=== PATIENT | male | born 1955 | race Caucasian/White ===

== ENCOUNTER → 2022-04-05 10:15 | Outpatient (BNVA) | payer BC, SELFPAY | PROVIDERS: PCP Physician Assistant Medical; Visit Provider Hospitalist | DX: Z23 Encounter for immunization (principal); J44.9 Chronic obstructive pulmonary disease, unspecified; R91.8 Other nonspecific abnormal finding of lung field; F17.200 Nicotine dependence, unspecified, uncomplicated; Z71.6 Tobacco abuse counseling | CPT/HCPCS: 90471; 90686 ==

== ENCOUNTER 2023-02-14 10:41 | Outpatient (AMB) | payer BC, SELFPAY ==
--- NOTE | 2023-02-14 10:52 | A.OFFVIS_ITS ---
Intake Vital Signs 02/14/23 10:53 Height 6 ft Weight 165 lb BMI 22.4 BP 124/60 Blood Pressure Location Lt brachial Position Sitting Pulse 65 Pulse Source Pulse Oximeter Pulse Oximetry (%) 94 Oxygen Delivery Method Room Air Intake Visit Reasons: Pulmonary nodules Allergies No Known Allergies Allergy (Verified 02/14/23 10:55) HPI HPI Comments History of Present Illness Details The patient is a 67-year-old gentleman current smoker presenting worsening productive cough and shortness of breath. The patient has been struggling with smoking. He has been trying to quit. Although been difficult. He was prescribed the patch but he has not use them. In addition to the shortness of breath, the patient has had a productive cough with white and yellowish phlegm. Moderate severity. Part of the workup the patient was re ferred to the lung cancer screening program at [facility] where he underwent a CT scan of the chest. We did personally review the CAT scan together. It appears that he does have some emphysematous changes in the upper lung zones. In addition to that significant bronchitis primarily in the mid and lower lung zones. He has multiple pulmonary nodules but the right middle lobe nodular density is little spiculated. Therefore was recommended he have a follow-up CT scan in 6 months. This will be February 2022. 01/03/2022 the patient has a telehealth visit. Apparently since we last spoke he started developing upper respiratory symptoms. He tested positive for COVID about 2 weeks ago. He did not take any antiviral therapy. The patient is feeling better although he did have a productive cough with green sputum moderate amount and also was having significant fatigue. Seems that the mucus burden is going down. He did try the Trelegy but was not as effective as Symbicort that he is using the past. He rather use Symbicort at this time. He also needs a rescue inhaler sent to the pharmacy P I will make sure to send more than medications. In the meantime I also sent a Z-Andrew to treating for acute bronchitis after the viral syndrome. Again, the patient will have a CT scan of the chest sometime in February and also will have to reschedule his PFTs. Will plan to follow-up sometime March to repeat you those results and to see how he is responding to the respiratory therapy. If the patient has any issues prior to that he has call the office for an earlier evaluation. 04/05/2022 patient is here for pulmonary follow-up visit. Overall the patient has been doing relatively well from a respiratory status. He responded better to the Symbicort inhaler. He still has wheezing at times. He does use his rescue inhaler a few times a week. He did undergo a CT scan of the chest as part of the lung cancer screening program and was read as unchanged. The patient is reassured. I do not have the report however. He did not have his pulmonary function studies as of yet. In addition to this the patient is still smoking. He did not waste picker the Nicotrol nasal spray. He was trying to wean down the cut down on the smoking to see if we could cut in that fashion. However he was not successful. He would like to try going Chantix and also using the Nicotrol nasal spray. I did not recommend he use Chantix along with nicotine products because would worsens the adverse effects of the medication. Therefore while sent Wellbutrin to the pharmacy that he can use in conjunction with the Nicotrol sprays for breakthrough symptoms. Otherwise the patient is doing well. 02/13/2023 the patient is here for a pulm onary follow-up visit. The patient recently started developing upper respiratory symptoms with cough. Also some chest tightness. He went to see his primary care doctor. He was diagnosed with sinusitis and bronchitis was given a course of doxycycline. He has been on it already for about 4 days. He is already feeling better. Clinically. On examination he does have some crackles on the right base area. Explained to him that he is likely having a component of bronchopneumonia but since he is already feeling better on antibiotics which is sent to continue to monitor his symptoms. If the patient has no improvement after the completion of the therapy or any worsening symptoms he is to get a repeat chest x-ray and will be requesting a sputum culture. In meantime if he feels better he should wait for his lung cancer screening CT scan until he is recovered from this illness. I did emphasize that will take around 4-6 weeks to clear the pneumonia. His last CT scan of the chest I personally reviewed was done at [facility] back in February 2022. The largest nodule measuring 5 mm in size had resolved. Now he has stable pulmonary nodules measuring about 2 mm in size. Therefore the patient was to continue the doxycycline if the patient is no better he will call the office. Otherwise to have his CT scan in a follow-up in 6 months. [facility] Medical History (Updated 02/14/23 @ 22:41 by Everardo David MD) Tobacco dependence Pulmonary nodules COPD (chronic obstructive pulmonary disease) Social History (Updated 11/05/21 @ 09:19 by COLLINS Griffith) Patient Tobacco Use Status: Current everyday Tobacco user Tobacco use type: Cigarette Years Smoked: 30 Yeras Review of Systems Const Denies chills and Denies fatigue Eyes Denies change in vision ENT Reports change in voice, Reports nasal congestion, Reports nasal discharge and Reports sore throat Card Denies chest pain and Reports dyspnea on exertion Resp Reports chest congestion, Reports cough, Reports dyspnea on exertion and Reports wheezing GI Reports no additional complaints Musc Reports no additional complaints Skin/Breast Denies rash Neuro Reports no additional complaints Endo Reports no additional complaints and Denies fatigue Marko/Lymph Denies easy bleeding, Denies easy bruising and Denies lymphadenopathy Aller/Immun Reports wheezing Physical Exam Vital Signs: Last Vital Signs Pulse 65 02/14/23 10:53 BP 124/60 02/14/23 10:53 Pulse Ox 94 02/14/23 10:53 Oxygen Delivery Method Room Air 02/14/23 10:53 BMI result Body Mass Index 22.4 Const General: alert HEENT Head: Yes normocephalic Neck Neck: Yes normal visual inspection and Yes full ROM Chest Chest palpation & inspection: normal inspection of the chest Resp Auscultation: crackles on the right, no wheezes and diminished lung sounds Cardio Rate: regular rate Rhythm: regular rhythm Heart sounds: S1 normal heart sound present and S2 normal heart sound present GI Inspection: Yes normal to inspection Skin General skin exam: no rashes or lesions noted Extrem General: Yes no clubbing, cyanosis or edema Assessment & Plan Assessment & Plan (1) COPD (chronic obstructive pulmonary disease): Code(s): J44.9 - Chronic obstructive pulmonary disease, unspecified Qualifiers: COPD type: chronic bronchitis Chronic bronchitis type: mixed simple and mucopurulent Qualified Code(s): J41.8 - Mixed simple and mucopurulent chronic bronchitis (2) Pulmonary nodules: Comment: 08/2021 [facility] 5mm spiculated nodule in the RML, other multiple sub-centimeter nodules noted Code(s): R91.8 - Other nonspecific abnormal finding of lung field (3) Tobacco dependence: Code(s): F17.200 - Nicotine dependence, unspecified, uncomplicated (4) Pneumonia: Code(s): J18.9 - Pneumonia, unspecified organism Qualifiers: Pneumonia type: due to unspecified organism Laterality: right Lung location: unspecified part of lung Qualified Code(s): J18.9 - Pneumonia, unspecified organism Plan continue Doxycycline, if no better will have CXR and sputum culture and call for a 2nd Abx continue Symbicort MAGAN as needed PFTs Tobacco cessation: wellbutrin and nicotrol spray for breakthrough LDCT 03/20. Established through the [employer] program. MAy need to postpond to 03/2023 to make sure he clears the acute process F/U 6 months Orders: Orders Sputum Cult + Gram stain Today J18.9 - Pneumonia, unspecified organism XR chest 2V Today J18.9 - Pneumonia, unspecified organism Quality Reporting (2019) Adult ([facility] 138/07/20/68) Smoking risk assessment performed?: Yes Patient Tobacco Use Status: Current everyday Tobacco user Coding Level of Care Code Est Pt Level 4 (93973) Diagnoses Mixed simple and mucopurulent chronic bronchitis J41.8 COPD type: chronic bronchitis Chronic bronchitis type: mixed simple and mucopurulent Pulmonary nodules R91.8 Tobacco dependence F17.200 Pneumonia of right lung due to infectious organism, unspecified part of lung J18.9 Pneumonia type: due to unspecified organism Laterality: right Lung location: unspecified part of lung Time Spent (min) 17
[2023-02-14 10:53] VITALS: BP 124/60; PULSE 65; O2SAT 94; BMI 22.4
== END 2023-02-14 11:24 | disposition home or self-care (01) ==
PROVIDERS: PCP Physician Assistant Medical; Visit Provider Hospitalist
DX: J41.8 Mixed simple and mucopurulent chronic bronchitis (principal); R91.8 Other nonspecific abnormal finding of lung field; F17.200 Nicotine dependence, unspecified, uncomplicated; J18.9 Pneumonia, unspecified organism
CPT/HCPCS: 99214

== ENCOUNTER → 2023-02-14 10:41 | Outpatient (BNVA) | payer BC, SELFPAY | PROVIDERS: PCP Physician Assistant Medical; Visit Provider Hospitalist ==

== ENCOUNTER 2023-08-15 10:30 | Outpatient (AMB) | payer BC, SELFPAY ==
[2023-08-15 11:15] VITALS: PULSE 80; O2SAT 91; BMI 22.4
--- NOTE | 2023-08-15 11:15 | A.OFFVIS_ITS ---
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 The patient has been s truggling with smoking. He has been trying to quit. Although been difficult. He was prescribed the patch but he has not use them. In addition to the shortness of breath, the patient has had a productive cough with white and yellowish phlegm. Moderate severity. Part of the workup the patient was referred to the lung cancer screening program at [facility] where he underwent a CT scan of the chest. We did personally review the CAT scan together. It appears that he does have some emphysematous changes in the upper lung zones. In addition to that significant bronchitis primarily in the mid and lower lung zones. He has multiple pulmonary nodules but the right middle lobe nodular density is little spiculated. Therefore was recommended he have a follow-up CT scan in 6 months. This will be February 2022. 01/03/2022 the patient has a telehealth visit. Apparently since we last spoke he started developing upper respiratory symptoms. He tested positive for COVID about 2 weeks ago. He did not take any antiviral therapy. The patient is feeling better although he did have a productive cough with green sputum moderate amount and also was having significant fatigue. Seems that the mucus burden is going down. He did try the Trelegy but was not as effective as Symbicort that he is using the past. He rather use Symbicort at this time. He also needs a rescue inhaler sent to the pharmacy P I will make sure to send more than medications. In the meantime I also sent a Z-Andrew to treating for acute bronchitis after the viral syndrome. Again, the patient will have a CT scan of the chest sometime in February and also will have to reschedule his PFTs. Will plan to follow-up sometime March to repeat you those results and to see how he is responding to the respiratory therapy. If the patient has any issues prior to that he has call the office for an earlier evaluation. 04/05/2022 patient is here for pulmonary follow-up visit. Overall the patient has been doing relatively well from a respiratory status. He responded better to the Symbicort inhaler. He still has wheezing at times. He does use his rescue inhaler a few times a week. He did undergo a CT scan of the chest as part of the lung cancer screening program and was read as unchanged. The patient is reassured. I do not have the report however. He did not have his pulmonary function studies as of yet. In addition to this the patient is still smoking. He did not tile picker the Nicotrol nasal spray. He was trying to wean down the cut down on the smoking to see if we could cut in that fashion. However he was not successful. He would like to try going Chantix and also using the Nicotrol nasal spray. I did not recommend he use Chantix along with nicotine products because would worsens the adverse effects of the medication. Therefore while sent Wellbutrin to the pharmacy that he can use in conjunction with the Nicotrol sprays for breakthrough symptoms. Otherwise the patient is doing well. 02/13/2023 the patient is here for a pulm onary follow-up visit. The patient recently started developing upper respiratory symptoms with cough. Also some chest tightness. He went to see his primary care doctor. He was diagnosed with sinusitis and bronchitis was given a course of doxycycline. He has been on it already for about 4 days. He is already feeling better. Clinically. On examination he does have some crackles on the right base area. Explained to him that he is likely having a component of bronchopneumonia but since he is already feeling better on antibiotics which is sent to continue to monitor his symptoms. If the patient has no improvement after the completion of the therapy or any worsening symptoms he is to get a repeat chest x-ray and will be requesting a sputum culture. In meantime if he feels better he should wait for his lung cancer screening CT scan until he is recovered from this illness. I did emphasize that will take around 4-6 weeks to clear the pneumonia. His last CT scan of the chest I personally reviewed was done at [facility] back in February 2022. The largest nodule measuring 5 mm in size had resolved. Now he has stable pulmonary nodules measuring about 2 mm in size. Therefore the patient was to continue the doxycycline if the patient is no better he will call the office. Otherwise to have his CT scan in a follow-up in 6 months. 08/15/2023 the patient is here for a pulm onary follow-up visit. The patient has been doing okay. Unfortunately he is still smoking cigarettes. He is rounded cut down. A few months ago he developed a worsening cough chest congestion. He did follow-up with his primary care doctor he was prescribed prednisone and then a few courses of antibiotics. Now is back to his baseline. The patient was participating in the lung cancer screening program at [facility] in then he was supposed to follow-up here. He has not had a CT scan as of yet. I believe 1 time he had to reschedule. Will go ahead and we refer him to the lung cancer screening program in order for him to get his CT scan soon. He did have a history of pulmonary nodules that do need follow-up specially with his high risk of malignancy. His respiratory exam is okay although he still having some wheezing. He does not uses Symbicort regularly. I did recommend that he use a little more often. In addition to that if that is not better we can always consider adding Spiriva to his respiratory regimen. Will follow-up in 6-8 months. If the patient has any worsening symptoms he will call the office for an earlier assessment. [facility] Medical History (Updated 02/14/23 @ 22:41 by Everardo David MD) Tobacco dependence Pulmonary nodules COPD (chronic obstructive pulmonary disease) Social History (Updated 11/05/21 @ 09:19 by COLLINS Griffith) Patient Tobacco Use Status: Current everyday Tobacco user Tobacco use type: Cigarette Years Smoked: 30 Yeras Review of Systems Const Denies chills and Denies fatigue Eyes Denies change in vision ENT Reports change in voice, Reports nasal congestion, Reports nasal discharge and Reports sore throat Card Denies chest pain and Reports dyspnea on exertion Resp Reports chest congestion, Reports cough, Reports dyspnea on exertion and Reports wheezing GI Reports no additional complaints Musc Reports no additional complaints Skin/Breast Denies rash Neuro Reports no additional complaints Endo Reports no additional complaints and Denies fatigue Marko/Lymph Denies easy bleeding, Denies easy bruising and Denies lymphadenopathy Aller/Immun Reports wheezing Physical Exam Vital Signs: Last Vital Signs Pulse 80 08/15/23 11:15 Pulse Ox 91 L 08/15/23 11:15 Oxygen Delivery Method Room Air 08/15/23 11:15 BMI result Body Mass Index 22.4 Const General: alert HEENT Head: Yes normocephalic Neck Neck: Yes normal visual inspection and Yes full ROM Chest Chest palpation & inspection: normal inspection of the chest Resp Auscultation: rhonchi, wheezes and diminished lung sounds Cardio Rate: regular rate Rhythm: regular rhythm Heart sounds: S1 normal heart sound present and S2 normal heart sound present GI Inspection: Yes normal to inspection Skin General skin exam: no rashes or lesions noted Extrem General: Yes no clubbing, cyanosis or edema Assessment & Plan Assessment & Plan (1) COPD (chronic obstructive pulmonary disease): Code(s): J44.9 - Chronic obstructive pulmonary disease, unspecified Qualifiers: COPD type: chronic bronchitis Chronic bronchitis type: mixed simple and mucopurulent Qualified Code(s): J41.8 - Mixed simple and mucopurulent chronic bronchitis (2) Pulmonary nodules: Comment: 08/2021 [facility] 5mm spiculated nodule in the RML, other multiple sub-centimeter nodules noted Code(s): R91.8 - Other nonspecific abnormal finding of lung field (3) Tobacco dependence: Code(s): F17.200 - Nicotine dependence, unspecified, uncomplicated Plan continue Symbicort start Combivent MAGAN as needed Tobacco cessation: wellbutrin and nicotrol spray for breakthrough LDCT 03/20. Established through the [facility] program. [place] [facility] F/U 6-8 months Orders: Referrals Thoracic Surgery Referral F17.200 - Nicotine dependence, unspecified, uncomplicated Medications: New ipratropium-albuterol 20-100 mcg/actuation (Combivent Respimat) space evenly during waking hours 1 puff inhalation QID 4 grams 6RF Quality Reporting (2019) Adult ([facility] 138/2/69) Smoking risk assessment performed?: Yes Patient Tobacco Use Status: Current everyday Tobacco user Coding Level of Care Code Est Pt Level 4 (15685) Diagnoses Mixed simple and mucopurulent chronic bronchitis J41.8 COPD type: chronic bronchitis Chronic bronchitis type: mixed simple and mucopurulent Pulmonary nodules R91.8 Tobacco dependence F17.200 Time Spent (min) 17
== END 2023-08-15 11:32 | disposition home or self-care (01) ==
PROVIDERS: PCP Physician Assistant Medical; Visit Provider Hospitalist
DX: J41.8 Mixed simple and mucopurulent chronic bronchitis (principal); R91.8 Other nonspecific abnormal finding of lung field; F17.200 Nicotine dependence, unspecified, uncomplicated
CPT/HCPCS: 99214

== ENCOUNTER → 2023-08-15 10:30 | Outpatient (BNVA) | payer BC, SELFPAY | PROVIDERS: PCP Physician Assistant Medical; Visit Provider Hospitalist ==

== ENCOUNTER 2023-09-22 09:24 | Outpatient (AMB) | payer BC, SELFPAY ==
--- NOTE | 2023-09-22 07:48 | A.OFFVIS_ITS ---
Intake Visit Reasons: Current Smoker Allergies No Known Allergies Allergy (Verified 08/15/23 11:16) HPI HPI Current Smoker: Details: Initial visit for this 67yo smoker with a 40+PYH. Patient has been smoking since age 17 for 50 years at 1ppd. . Denies marijuana use. Denies second hand smoke exposure. REports exposure to chemicals or substances like asbestos and diesel fumes. . Denies known family history of lung cancer. Denies personal history of cancers. . Denies chest CT in last year. 03.17[place] [facility] [place] lung RADS 2. He canceled 2022 scan as he had a cough at the time and then never was rescheduled. . Denies recent travel outside the [place]. Denies recent respiratory illness or recent hospitalization for respiratory issues. Rports testing positive for COVID in 2020. Admits receiving COVID Vaccine. x 2. . Denies fever, chills, new/worsening cough, hemoptysis, hoarseness or dysphagia. Denies significant chest pain, significant dyspnea or unintentional weight loss. Patient Lung Cancer Screening Questionnaire reviewed with patient by provider. . Shared Decision Making Completed. Patient meets criteria. Discussed in detail with patient, the risk vs benefit of LDCT screening. Patient consents to proceed with scan. Discussed smoking cessation. [facility] Medical History (Updated 09/22/23 @ 09:41 by Julianna Oakley PA-C) Pulmonary nodules COPD (chronic obstructive pulmonary disease) Nicotine dependence, cigarettes, uncomplicated Hypertension GERD (gastroesophageal reflux disease) Gout Surgical History (Updated 09/22/23 @ 09:35 by Julianna Oakley PA-C) History of tonsillectomy Social History (Updated 09/22/23 @ 09:32 by Julianna Oakley PA-C) Alcohol intake: current Alcohol intake frequency: 0-2 drinks per day Patient Tobacco Use Status: Current everyday Tobacco user Tobacco use type: Cigarette Years Smoked: (onset 17yo, 1ppd x 50yrs, 40+PYH) Quality Reporting (2019) Adult ([facility] /07/20/[birth year]) Smoking risk assessment performed?: Yes Patient Tobacco Use Status: Current everyday Tobacco user Assessment & Plan Assessment & Plan (1) Nicotine dependence, cigarettes, uncomplicated: Comment: (current smoker - onset 17yo, 1ppd x 50yrs, 40+PYH) Code(s): F17.210 - Nicotine dependence, cigarettes, uncomplicated Category: Medical Plan: - SDM visit completed today in office. - Patient meets criteria for LDCT for lung cancer screening purposes and is asymptomatic. - Smoking cessation counseling offered. Patients can always call [phone]. - Will arrange for a LDCT scan of the chest for screening purposes at [facility]. - Risks, benefits, and alternatives were discussed in detail and the patient agrees to proceed. - Risks discussed include but are not limited to: radiation exposure, anxiety during testing and while awaiting results, false negatives, false positives and possibility of additional intervention such as further imaging or surgical procedures for benign disease. - Benefits are obviously detection of lung cancer at an early stage which can lead to improved outcomes. - Discussed the importance of screening program compliance with adherence to yearly LDCT scan as scheduled - or sooner interval scans for personalized screening regimen. - Discussed follow up plan. Our office will send a letter discussing results and if needed set up phone call and office visit based on CT findings. - Patient educated on results categorization and the management decisions for suspicious findings potentially found on the screening LDCT scan. Any patient with a Lung RADS score of 3 or 4 will be reviewed by a multidisciplinary team at [facility] to form a plan of action in regards to scan findings. - If further work up is warranted for a suspicious lung finding this will be followed by the Lung Cancer Screening program in conjunction with the Thoracic Surgery Department at [facility]. - A copy of the office note and LDCT will be sent to the patient's PCP - as well as documentation on any associated further plans of care. - Incidental findings on LDCT are the PCP's responsibility. These findings are indicated with an S finding on the LDCT Assessment. A note discussing the findings will be sent to the PCP who is then responsible for further management. - All questions answered.? Coding Level of Care Code Lung Cancer Screening G0296 Diagnoses Nicotine dependence, cigarettes, uncomplicated F17.210
== END 2023-09-22 09:44 | disposition home or self-care (01) ==
PROVIDERS: PCP Physician Assistant Medical; Referring Provider Hospitalist; Visit Provider Physician Assistant Medical
DX: F17.210 Nicotine dependence, cigarettes, uncomplicated (principal)
CPT/HCPCS: G0296

== ENCOUNTER 2023-09-22 09:41 | Outpatient (REF) | payer BC, SELFPAY ==
--- NOTE | ~2023-09-22 | CT_ITS ---
EXAMINATION: CT CHEST SCREENING CLINICAL INFORMATION: Nicotine dependence, cigarettes, uncomplicated. The patient is a current smoker with a 40 pack-year history of smoking. COMPARISON: None available. TECHNIQUE: Multidetector volumetric CT imaging of the chest is performed on a Siemens SOMATOM Definition scanner without contrast using low dose technique. Additional 2D coronal and sagittal reformatted images and axial 3D maximum intensity projection (MIP) images are generated on the CT workstation. This CT examination was performed using dose optimization techniques as appropriate, variously including the following: *Automated exposure control *Adjustment of mA and/or kV according to patient size (this includes techniques or standardized protocols for targeted exams where dose is matched to indication/reason for exam; i.e. extremities or head) *Use of iterative reconstruction technique DLP: 49 mGy-cm FINDINGS: LUNGS: Moderate emphysematous changes are present with a saber-sheath trachea. Moderate diffuse bronchial thickening is noted. There is a 5 mm nodule seen at the left lung apex (5:83). No other pulmonary nodules are seen. MEDIASTINUM: The mediastinum is normal. CORONARY ARTERY CALCIFICATION: Mild to moderate. PLEURA: There is no pleural effusion. No pleural mass or thickening. AXILLA: No lymphadenopathy. UPPER ABDOMEN: Unremarkable OSSEOUS STRUCTURES: Unremarkable. CT/CT lung screening IMPRESSION: Moderate emphysema. No concerning pulmonary nodules. ASSESSMENT: Lung-RADS category 2: Benign RECOMMENDATION: Routine annual low-dose CT screening in 12 months.
== END 2023-09-22 09:42 | disposition home or self-care (01) ==
LOC: HO.CT 09:41
PROVIDERS: PCP Physician Assistant Medical; Visit Provider Physician Assistant Medical
DX: Z12.2 Encounter for screening for malignant neoplasm of respiratory organs (principal); F17.210 Nicotine dependence, cigarettes, uncomplicated
CPT/HCPCS: 71271; G0296

== ENCOUNTER 2024-04-12 14:06 | Outpatient (AMB) | payer BC, SELFPAY ==
[2024-04-12 14:35] VITALS: BP 140/74; PULSE 66; O2SAT 92; BMI 21.5
--- NOTE | 2024-04-12 14:35 | A.OFFVIS_ITS ---
Vital Signs 04/12/24 14:35 Height 6 ft Weight 158 lb 11.725 oz BMI 21.5 BP 140/74 H Blood Pressure Location Lt brachial Position Sitting Pulse 66 Pulse Source Pulse Oximeter Pulse Oximetry (%) 92 Oxygen Delivery Method Room Air Intake Visit Reasons: Pulmonary nodules Lens Maker Required: No Director Child Abuse Therapy: Director Child Abuse Therapy offered & declined Accompanied by: Self / Same As Patient Allergies No Known Allergies Allergy (Verified 04/12/24 14:41) Medication List - Last Reconciled 04/12/24 by Mulu Ortiz LPN albuterol sulfate 90 mcg/actuation 2 inhalations inhalation Q6H PRN 30 days allopurinol 200 mg PO DAILY budesonide-formoterol 160-4.5 mcg/actuation 2 puffs inhalation BID bupropion HCl 150 mg (2 x 75 mg) PO BID celecoxib 200 mg PO DAILY doxycycline hyclate 100 mg PO DAILY ipratropium-albuterol 20-100 mcg/actuation (Combivent Respimat) 1 puff inhalation QID lisinopril 20 mg PO DAILY metoprolol succinate ER 100 mg PO DAILY nicotine (Nicotrol NS) 1 spray intranasal Q10M PRN nicotine 1 patch transdermal DAILY 28 days HPI Comments Details: The patient is a 68-year-old gentleman current smoker presenting worsening productive cough and shortness of breath. The patient has been struggling with smoking. He has been trying to quit. Although been difficult. He was prescribed the patch but he has not use them. In addition to the shortness of breath, the patient has had a productive cough with white and yellowish phlegm. Moderate severity. Part of the workup the patient was referred to the lung cancer screening program at [facility] where he underwent a CT scan of the chest. We did personally review the CAT scan together. It appears that he does have some emphysematous changes in the upper lung zones. In addition to that significant bronchitis primarily in the mid and lower lung zones. He has multiple pulmonary nodules but the right middle lobe nodular density is little spiculated. Therefore was recommended he have a follow-up CT scan in 6 months. This will be February 2022. 01/03/2022 the patient has a telehealth visit. Apparently since we last spoke he started developing upper respiratory symptoms. He tested positive for COVID about 2 weeks ago. He did not take any antiviral therapy. The patient is feeling better although he did have a productive cough with green sputum moderate amount and also was having significant fatigue. Seems that the mucus burden is going down. He did try the Trelegy but was not as effective as Symbicort that he is using the past. He rather use Symbicort at this time. He also needs a rescue inhaler sent to the pharmacy P I will make sure to send more than medications. In the meantime I also sent a Z-Andrew to treating for acute bronchitis after the viral syndrome. Again, the patient will have a CT scan of the chest sometime in February and also will have to reschedule his PFTs. Will plan to follow-up sometime March to repeat you those results and to see how he is responding to the respiratory therapy. If the patient has any issues prior to that he has call the office for an earlier evaluation. 04/05/2022 patient is here for pulmonary follow-up visit. Overall the patient has been doing relatively well from a respiratory status. He responded better to the Symbicort inhaler. He still has wheezing at times. He does use his rescue inhaler a few times a week. He did undergo a CT scan of the chest as part of the lung cancer screening program and was read as unchanged. The patient is reassured. I do not have the report however. He did not have his pulmonary function studies as of yet. In addition to this the patient is still smoking. 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 He was trying to wean down the cut down on the smoking to see if we could cut in that fashion. However he was not successful. He would like to try going Chantix and also using the Nicotrol nasal spray. I did not recommend he use Chantix along with nicotine products because would worsens the adverse effects of the medication. Therefore while sent Wellbutrin to the pharmacy that he can use in conjunction with the Nicotrol sprays for breakthrough symptoms. Otherwise the patient is doing well. 02/13/2023 the patient is here for a pulmonary follow-up visit. The patient recently started developing upper respiratory symptoms with cough. Also some chest tightness. He went to see his primary care doctor. He was diagnosed with sinusitis and bronchitis was given a course of doxycycline. He has been on it already for about 4 days. He is already feeling better. Clinically. On examination he does have some crackles on the right base area. Explained to him that he is likely having a component of bronchopneumonia but since he is already feeling better on antibiotics which is sent to continue to monitor his symptoms. If the patient has no improvement after the completion of the therapy or any worsening symptoms he is to get a repeat chest x-ray and will be requesting a sputum culture. In meantime if he feels better he should wait for his lung cancer screening CT scan until he is recovered from this illness. I did emphasize that will take around 4-6 weeks to clear the pneumonia. His last CT scan of the chest I personally reviewed was done at [facility] back in February 2022. The largest nodule measuring 5 mm in size had resolved. Now he has stable pulmonary nodules measuring about 2 mm in size. Therefore the patient was to continue the doxycycline if the patient is no better he will call the office. Otherwise to have his CT scan in a follow-up in 6 months. 08/15/2023 the patient is here for a pulmonary follow-up visit. The patient has been doing okay. Unfortunately he is still smoking cigarettes. He is rounded cut down. A few months ago he developed a worsening cough chest congestion. He did follow-up with his primary care doctor he was prescribed prednisone and then a few courses of antibiotics. Now is back to his baseline. The patient was participating in the lung cancer screening program at [facility] in then he was supposed to follow-up here. He has not had a CT scan as of yet. I believe 1 time he had to reschedule. Will go ahead and we refer him to the lung cancer screening program in order for him to get his CT scan soon. He did have a history of pulmonary nodules that do need follow-up specially with his high risk of malignancy. His respiratory exam is okay although he still having some wheezing. He does not uses Symbicort regularly. I did recommend that he use a little more often. In addition to that if that is not better we can always consider adding Spiriva to his respiratory regimen. Will follow-up in 6-8 months. If the patient has any worsening symptoms he will call the office for an earlier assessment. 04/12/2024 the patient is here for a pulmonary follow-up visit. Overall he is feeling better finally. Over the summer he did develop pertussis and had a significant chronic cough for few months. But now is better. He continues on his respiratory inhalers with good effect. He does use Combivent and also Symbicort. In addition to that the patient did start some cough medication. He is participating in the lung cancer screening program. His last CT scan was back in 09/16/2023 demonstrating a small 5 mm pulmonary nodule which is stable compared to his previous reports and also moderate degree of emphysema. Therefore he knows that he needs to quit smoking. He has been struggling with that. Although now is going to be using nonsmoker herbal nicotine products to help him with that. Will follow-up with him in about 6-8 months. If any new issues arise he will call for further evaluation. PENDING SALE TO [facility] Medical History (Updated 09/22/23 @ 09:41 by Julianna Oakley PA-C) Pulmonary nodules COPD (chronic obstructive pulmonary disease) Nicotine dependence, cigarettes, uncomplicated Hypertension GERD (gastroesophageal reflux disease) Gout Surgical History (Updated 09/22/23 @ 09:35 by Julianna Oakley PA-C) History of tonsillectomy Social History (Updated 04/12/24 @ 14:43 by Mulu Ortiz LPN) Alcohol intake: current Alcohol intake frequency: 0-2 drinks per day Patient Tobacco Use Status: Current everyday Tobacco user Tobacco use type: Cigarette Cigarette Packs Per Day: 1 Years Smoked: (onset 17yo, 1ppd x 50yrs, 40+PYH) Review of Systems Const Denies chills and Denies fatigue Eyes Denies change in vision ENT Reports change in voice, Reports nasal congestion, Reports nasal discharge and Reports sore throat Card Denies chest pain and Reports dyspnea on exertion Resp Reports chest congestion, Reports cough, Reports dyspnea on exertion and Reports wheezing GI Reports no additional complaints Musc Reports no additional complaints Skin/Breast Denies rash Neuro Reports no additional complaints Endo Reports no additional complaints and Denies fatigue Marko/Lymph Denies easy bleeding, Denies easy bruising and Denies lymphadenopathy Aller/Immun Reports wheezing Physical Exam Vital Signs: Last Vital Signs Pulse 66 04/12/24 14:35 BP 140/74 H 04/12/24 14:35 Pulse Ox 92 04/12/24 14:35 Oxygen Delivery Method Room Air 04/12/24 14:35 BMI result Body Mass Index 21.5 Const General: alert HEENT Head: Yes normocephalic Neck Neck: Yes normal visual inspection and Yes full ROM Chest Chest palpation & inspection: normal inspection of the chest Resp Auscultation: no rhonchi, no wheezes and diminished lung sounds Cardio Rate: regular rate Rhythm: regular rhythm Heart sounds: S1 normal heart sound present and S2 normal heart sound present GI Inspection: Yes normal to inspection Skin General skin exam: no rashes or lesions noted Extrem General: Yes no clubbing, cyanosis or edema Quality Reporting (2019) Adult ([facility] 138/07/20/68) Smoking risk assessment performed?: Yes Patient Tobacco Use Status: Current everyday Tobacco user Assessment & Plan Assessment & Plan (1) COPD (chronic obstructive pulmonary disease): Code(s): J44.9 - Chronic obstructive pulmonary disease, unspecified Category: Medical Qualifiers: COPD type: chronic bronchitis Chronic bronchitis type: mixed simple and mucopurulent Qualified Code(s): J41.8 - Mixed simple and mucopurulent chronic bronchitis (2) Pulmonary nodules: Comment: 08/2021 [facility] 5mm spiculated nodule in the RML, other multiple sub-centimeter nodules noted Code(s): R91.8 - Other nonspecific abnormal finding of lung field Category: Medical (3) Tobacco dependence: Code(s): F17.200 - Nicotine dependence, unspecified, uncomplicated Category: Medical Plan continue Symbicort Combivent MAGAN as needed Tobacco cessation: stopped wellbutrin LDCT F/U 8-12 months Medications: Discontinued nicotine (Nicotrol NS) spray into each nostril; do not exceed 5mg (10 sprays)/hr and 40mg (80 sprays)/24hrs Discontinued Reason: Doctor's Order 1 spray intranasal Q10M PRN 40 mL 0RF nicotine cravings Coding Level of Care Code Est Pt Level 4 (66364) Diagnoses Mixed simple and mucopurulent chronic bronchitis J41.8 COPD type: chronic bronchitis Chronic bronchitis type: mixed simple and mucopurulent Pulmonary nodules R91.8 Tobacco dependence F17.200 Time Spent (min) 16
== END 2024-04-12 15:05 | disposition home or self-care (01) ==
PROVIDERS: PCP Physician Assistant Medical; Visit Provider Hospitalist
DX: J41.8 Mixed simple and mucopurulent chronic bronchitis (principal); R91.8 Other nonspecific abnormal finding of lung field; F17.200 Nicotine dependence, unspecified, uncomplicated
CPT/HCPCS: 99214

== ENCOUNTER 2024-09-24 12:40 | Outpatient (REF) | payer BC, SELFPAY ==
--- NOTE | ~2024-09-24 | CT_ITS ---
CLINICAL HISTORY: F17.210 - Nicotine dependence, cigarettes, uncomplicated CT lung cancer screening (LDCT) Comparison: CT/OR/SR - CT LUNG SCREENING - 09/22/23 09:52 EDT Technique: Axial CT images of the chest using low-dose technique. Referring provider counseled the patient on shared decision-making for LDCT screening. Additional counseling was provided on smoking cessation. Effective radiation dose total: DLP 35 mGycm, CTDIvol 1.0 mGy. Findings: Lung: Mild emphysema. There is interval mild increase in size of the nodule of the left upper lobe series 4, image 26 measuring 5 x 5.3 mm, previously 4 x 4.5 mm. Coronary artery calcifications: Moderate Limited upper abdomen: Unremarkable Other: None Impression: LungRADS 3 - Probably benign: Recommend low dose screening Chest CT in 6 months. ##L3# Category 1: Normal; continue annual screening Category 2: Benign appearance or behavior, continue annual screening Category 3: Probably benign, [address] recommended Category 4A: Suspicious, [address] recommended; may consider PET/CT Category 4B: Suspicious, Additional diagnostics and/or tissue sampling recommended Category 4X: Suspicious, Additional diagnostics and/or tissue sampling recommended Category 0: Recalls (incomplete screen due to Incomplete coverage, Noise, Respiratory motion, Expiration, Obscured by acute abnormality) This document has been electronically signed by: Blanca Floyd MD on 09/25/2024 17:58:39
--- OUTSIDE RECORDS SUMMARY | 2024-09-24 14:31 | XMS_ITS | Clinical Summary ---
Author Organization [facility] Address [address] [place] [address] Care Team Providers Care Channel Marketing Specialist Name Role Phone Aubree John PA-C Primary Care Provi tam Everardo David MD Unavailable Allergies No known active allergies Medications budesonide-formot jj (SYMBICORT) 160-4.5 MCG/ACT inhaler Inhale 2 puffs 2 (two) times a day. 4 Active lisinopril (PRINIVIL,ZeSTRIL ) 30 MG tabletIndications :Primary hypertension Take 1 tablet (30 mg total) by mouth daily. 90 tablet 3 4 Active metoPROLOL SUCCINATE (TOPROL-XL) 100 MG 24 hr tabletIndications :Primary hypertension Take 1 tablet (100 mg total) by mouth daily. 90 tablet 3 4 Active allopurinol (ZYLOPRIM) 100 mg tabletIndications :Gout, unspecified cause, unspecified chronicity, unspecified site TAKE 2 TABLETS BY MOUTH EVERY DAY 180 tablet 1 4 Active Active Problems Problem Noted Date Diagnosed Date Gastroesophageal reflux disease without esophagi tis 08/04/2023 HTN (hypertension) 08/01/2023 Tobacco use 08/01/2023 Gout 08/01/2023 COPD (chronic obstructive pulmonary disease) 09/2023 Overview (08/04/2023): Emphysema; follows with Dr. David BPH (benign prostatic hyperplasia) 08/01/2023 Resolved Problems Problem Noted Date Diagnosed Date Resolved Date ETOH abuse 08/04/2023 06/03/2024 Encounters Date Type Department Care Team Description 09/12/2024 Scanned Document [facility] NEUROSURGERY SCAN Neurosurgery, Scan 08/14/2024 Orders Only [facility] [address] [place] [address] Cardiology, Scan 08/02/2024 Telephone [facility] [address] [facility] [address] [place] [phone] Aubree John PA-C 07/30/[address] [place] [phone] Aubree John PA-C 06/28/2024 Orders Only [address] [place] [phone] Aubree John PA-C Neck pain (Primary Dx) 06/28/[address] [phone] Aubree John PA-C from Last 3 Months Immunizations Immunization Administration Dates Next Due Pneumococcal Conjugate 20-Valent 05/02/2022 Family History Medical History Relation Name Comments No Known Problems Father No Known Problems Mother Relation Name Status Comments Father Mother Social History Tobacco Use Types Packs/Day Years Used Date Smoking Tobacco: Every Day Cigarettes 1 40 Passive Smoke Exposure: Current Smokeless Tobacco: Former Tobacco Cessation:Ready to Q uit: Not Asked; Counseling Given: Not Answered Alcohol Use Standard Drinks/Week Comments Yes 0 (1 standard drink = 0.6 oz pur e alcohol) 12 PHQ-2 Answer Date Recorded PHQ-2 Total Score 0 06/03/2024 Physical Activity Answer Date Recorded On average, how many days pe r week do you engage in moderate to strenuous exercise (like a brisk walk)? 3 days 06/03/2024 On average, how many minutes do you exercise per day at this level? 60 min 06/03/2024 Sex and Gender Information Value Date Recorded Sex Assigned at Not on file Legal Sex Male 10:06 AM EST Gender Identity Not on file Sexual Orientation Not on file Last Filed Vital Signs Vital Sign Reading Time Taken Comments Blood Pressure 134/78 06/03/2024 3:55 PM EST Pulse 76 06/03/2024 12:48 PM EST Temperature 36.4 ??C (97.5 ??F) 06/03/2024 12:[address] Respiratory Rate 17 06/03/2024 12:48 PM EST Oxygen Saturation 92% 06/03/2024 12:48 PM EST Inhaled Oxygen Concentration - - Weight 72.2 kg (159 lb 3.2 oz) 06/03/2024 12:48 PM EST Height 182.9 cm (6') 06/03/2024 12:48 PM EST Body Mass Index 21.59 06/03/2024 12:48 PM EST Plan of Treatment Upcoming Encounters Date Type Department Care Team (Late st Contact Info) Description 12/02/2024 12:30 PM EDT Office Visit [address] [place] [address] Aubree John PA-C [address] [place] [address] Health Maintenance Due Date Last Done Comments Hepatitis C Virus Screening 1955 DTaP/Tdap/Td Vaccines (1 - Tdap) 1973 Colonoscopy 12/04/1999 Zoster (Shingles) Vaccine (1 of 2) 2004 RSV Vaccine 60 years and older and Patients (1 - Risk 60-74 years 1-dose series) 2014 Abdominal Aortic Aneurysm (AAA) Screening 12/04/2019 Influenza Vaccine 12/28/2023 COVID-19 Vaccine (1 - 2023-2 5 season) 2024 Lung Cancer Screening (LDCT) 09/21/2024 (Previously Completed) Physical 06/03/2025 06/03/2024 Pneumococcal Vaccines 50+ Completed 05/02/2022 Hepatitis B Vaccines Aged Out No long er eligible based on patient's age to complete this topic Procedures Procedure Name Priority Date/Time Associated Diagnosis Comments CARDIOLOGY ECHO Routine 08/08/2024 from Last 3 Months Results * CARDIOLOGY ECHO (08/08/2024) Anatomical Region Laterality Modality Other us Scan Cardiology HX AMB PROCEDURES Edited Result - Final from Last 3 Months Insurance [facility] Care Teams Channel Marketing Specialist Relationship Specialty Start Date End Date Aubree John PA-C [address] [place] [address] PCP - General Internal Medicine 08/01/23 Everardo David MD [address] [place] [address] Physician Medicine Hospitalist 09/13/23 Mao Smalls Physician Rheumatology 08/28/23
--- OUTSIDE RECORDS SUMMARY | 2024-09-24 14:31 | XMS_ITS ---
Author Name [facility] Organization Unknown History of Medication Use Medication Directions Dispensed Refills Start Date End Date Stat us lisinopril (PRINIVIL,ZeSTRIL) 30 MG tablet Take 1 tablet (30 mg total) by mouth daily. 06/02/2023 active Problems Problem Status Onset Date Problem Type Date of Resoluti on Source Gastroesophageal reflux disease without esophagitis active 2023-08-04 [facility]Act [facility] BPH (benign prostatic hyperplasia) active 2023-08-01 ProblemAct [facility] Tobacco use active 2023-08-01 ProblemAct [facility] COPD (chronic obstructive pulmonary disease) active 2023-08-01 ProblemAct [facility] Gout active 2023-08-01 ProblemAct [facility] HTN (hypertension) active 2023-08-01 ProblemAct [facility] ETOH abuse active 2023-08-04 ProblemAct [facility] Immunizations Vaccine Date Source Lot Number Status Pneumococcal Conjugate 20-Valent 05/02/2022 [facility] completed Encounters Encounter Type Encounter Reason Primary Diagnosis Location Date Ambulatory Encounter for general adult medical examination without abnormal findings Encounter for general adult medical examination without abnormal findings [facility] 06/03/2024 Ambulatory Cough, unspecified Cough, unspecified [facility] [place] 02/28/2024 Ambulatory Gout, unspecified Gout, unspecified [facility] [place] 09/13/2023 Ambulatory Other fatigue Other fatigue [facility] [employer] 08/01/2023 Care Team Organization Name Specialty Phone Email Start Date End Da te [facility] RACHELE RAMOS Primary Care 08/01/2023 [facility] RACHEL Primary Care 08/01/2023 [facility] NO PCP Primary Care 06/22/2023
--- OUTSIDE RECORDS SUMMARY | 2024-09-24 14:31 | XMS_ITS | Encounter Summary ---
Author Organization [facility] Address [address] [place] [address] Care Team Providers Care Hospitality Coordinator Name Role Phone Aubree John PA-C Primary Care Provi tam Everardo David MD Unavailable [phone] Encounter Details Date Type Department Care Team ([facility] Contact Info) Description 04/17/2024 Scanned Document [facility] [address] [place] [address] Pulmonary, Scan Social History Tobacco Use Types Packs/Day Years Used Date Smoking Tobacco: Every Day Cigarettes 1 40 Passive Smoke Exposure: Current Smokeless Tobacco: Former Alcohol Use Standard Drinks/Week Comments Yes 0 (1 standard drink = 0.6 oz pur e alcohol) 12 PHQ-2 Answer Date Recorded PHQ-2 Total Score 0 09/13/2023 Sex and Gender Information Value Date Recorded Sex Assigned at Not on file Legal Sex Male 10:06 AM EST Gender Identity Not on file Sexual Orientation Not on file documented as of this encounter Plan of Treatment Upcoming Encounters Date Type Department Care Team ([facility] Contact Info) Description 12/02/2024 12:30 PM EDT Office Visit [address] [place] [phone] Aubree John PA-C [address] [place] [address] documented as of this encounter Visit Diagnoses Not on filedocumented in this encounter Care Teams Hospitality Coordinator Relationship Specialty Start Date End Date Aubree John PA-C [address] [place] [phone] PCP - General Internal Medicine 08/01/23 Everardo David MD [address] [place] [address] Physician Medicine Hospitalist 09/13/23 Mao Smalls Physician Rheumatology 08/28/23 documented as of this encounter
--- OUTSIDE RECORDS SUMMARY | 2024-09-24 14:31 | XMS_ITS | Encounter Summary ---
Author Organization [facility] Address [address] [place], [place] [id number] Care Team Providers Care Engineering Technician Name Role Phone Aubree John PA-C Primary Care Provi tam Everardo David MD Unavailable [phone] Encounter Details Date Type Department Care Team (Late Contact Info) Description 09/12/2024 Scanned Document [facility] NEUROSURGERY SCAN Neurosurgery, Scan Social History Tobacco Use Types Packs/Day [...] Encounters Date Type Department Care Team (Late Contact Info) Description 12/02/2024 12:30 PM EDT Office Visit [address] [phone] Aubree John PA-C [address] [place] [address] documented as of this encounter Visit Diagnoses Not on filedocumented in this encounter Care Teams Engineering Technician Relationship Specialty Start Date End Date Aubree John PA-C [address] [place] [address] PCP - General Internal Medicine 08/01/23 Everardo David MD [address] [place] [address] Physician Medicine Hospitalist 09/13/23 Mao Smalls Physician Rheumatology 08/28/23 documented as of this encounter
--- OUTSIDE RECORDS SUMMARY | 2024-09-24 14:31 | XMS_ITS | Encounter Summary ---
Author Organization [facility] Address [address] [place] [address] [place], [place] [id number] Care Team Providers Care Armored Truck Driver Name Role Phone Aubree John PA-C Primary Care Provi tam Everardo David MD Unavailable [phone] Encounter Details Date Type Department Care Team (Late Contact Info) Description 09/22/2023 Scanned Document [facility] PULMONOLGY SCAN Pulmonary, Scan Social History Tobacco Use Types [...] Description 12/02/2024 12:30 PM EDT Office Visit [address] [place] [address] Aubree John PA-C [address] [place] [address] documented as of this encounter Visit Diagnoses Not on filedocumented in this encounter Care Teams Armored Truck Driver Relationship Specialty Start Date End Date Aubree John PA-C [address] [place] [address] PCP - General Internal Medicine 08/01/23 Everardo David MD [address] [place] [address] Physician Medicine Hospitalist 09/13/23 Mao Smalls Physician Rheumatology 08/28/23 documented as of this encounter
== END 2024-09-24 12:41 | disposition home or self-care (01) ==
LOC: HO.CT 12:40
PROVIDERS: PCP Physician Assistant Medical; Visit Provider Physician Assistant Medical
DX: Z12.2 Encounter for screening for malignant neoplasm of respiratory organs (principal); F17.210 Nicotine dependence, cigarettes, uncomplicated
CPT/HCPCS: 71271

== ENCOUNTER → 2024-09-24 12:41 | Outpatient (BNV) | payer BC, SELFPAY | PROVIDERS: PCP Physician Assistant Medical; Visit Provider Nuclear Medicine | DX: F17.210 Nicotine dependence, cigarettes, uncomplicated (principal) | CPT/HCPCS: 71271 ==

== ENCOUNTER 2024-11-15 13:54 | Outpatient (AMB) | payer BC, SELFPAY ==
[2024-11-15 13:56] VITALS: BP 130/74; PULSE 83; O2SAT 92; BMI 20.6
--- NOTE | 2024-11-15 13:56 | MHC.OFFVIS ---
Vital Signs 11/15/24 13:56 Height 6 ft Weight 152 lb 1.903 oz BMI 20.6 BP 130/74 Blood Pressure Location Lt brachial Position Sitting Pulse 83 Pulse Source Pulse Oximeter Pulse Oximetry (%) 92 Oxygen Delivery Method Room Air Intake Visit Reasons: Pulmonary nodules Hospice Art Therapist Required: No Accompanied by: Self / Same As Patient Allergies No Known Allergies Allergy (Verified 11/15/24 13:58) HPI Comments Details: The patient is a 68-year-old gentleman current smoker presenting worsening productive cough and shortness of breath. The patient has been struggling with smoking. He has been trying to quit. Although been difficult. He was prescribed the patch but he has not use them. In addition to the shortness of breath, the patient has had a productive cough with white and yellowish phlegm. Moderate severity. Part of the workup the patient was referred to the lung cancer screening program at [facility] where he underwent a CT scan of the chest. We did personally review the CAT scan together. It appears that he does have some emphysematous changes in the upper lung zones. In addition to that significant bronchitis primarily in the mid and lower lung zones. He has multiple pulmonary nodules but the right middle lobe nodular density is little spiculated. Therefore was recommended he have a follow-up CT scan in 6 months. This will be February 2022. 01/03/2022 the patient has a telehealth visit. Apparently since we last spoke he started developing upper respiratory symptoms. He tested positive for COVID about 2 weeks ago. He did not take any antiviral therapy. The patient is feeling better although he did have a productive cough with green sputum moderate amount and also was having significant fatigue. Seems that the mucus burden is going down. He did try the Trelegy but was not as effective as Symbicort that he is using the past. He rather use Symbicort at this time. He also needs a rescue inhaler sent to the pharmacy P I will make sure to send more than medications. In the meantime I also sent a Z-Andrew to treating for acute bronchitis after the viral syndrome. Again, the patient will have a CT scan of the chest sometime in February and also will have to reschedule his PFTs. Will plan to follow-up sometime March to repeat you those results and to see how he is responding to the respiratory therapy. If the patient has any issues prior to that he has call the office for an earlier evaluation. 04/05/2022 patient is here for pulmonary follow-up visit. Overall the patient has been doing relatively well from a respiratory status. He responded better to the Symbicort inhaler. He still has wheezing at times. He does use his rescue inhaler a few times a week. He did undergo a CT scan of the chest as part of the lung cancer screening program and was read as unchanged. The patient is reassured. I do not have the report however. He did not have his pulmonary function studies as of yet. In addition to this the patient is still smoking. He did not picker/puller the Nicotrol nasal spray. He was trying to wean down the cut down on the smoking to see if we could cut in that fashion. However he was not successful. He would like to try going Chantix and also using the Nicotrol nasal spray. I did not recommend he use Chantix along with nicotine products because would worsens the adverse effects of the medication. Therefore while sent Wellbutrin to the pharmacy that he can use in conjunction with the Nicotrol sprays for breakthrough symptoms. Otherwise the patient is doing well. 02/13/2023 the patient is here for a pulmonary follow-up visit. The patient recently started developing upper respiratory symptoms with cough. Also some chest tightness. He went to see his primary care doctor. He was diagnosed with sinusitis and bronchitis was given a course of doxycycline. He has been on it already for about 4 days. He is already feeling better. Clinically. On examination he does have some crackles on the right base area. Explained to him that he is likely having a component of bronchopneumonia but since he is already feeling better on antibiotics which is sent to continue to monitor his symptoms. If the patient has no improvement after the completion of the therapy or any worsening symptoms he is to get a repeat chest x-ray and will be requesting a sputum culture. In meantime if he feels better he should wait for his lung cancer screening CT scan until he is recovered from this illness. I did emphasize that will take around 4-6 weeks to clear the pneumonia. His last CT scan of the chest I personally reviewed was done at [facility] back in February 2022. The largest nodule measuring 5 mm in size had resolved. Now he has stable pulmonary nodules measuring about 2 mm in size. Therefore the patient was to continue the doxycycline if the patient is no better he will call the office. Otherwise to have his CT scan in a follow-up in 6 months. 08/15/2023 the patient is here for a pulmonary follow-up visit. The patient has been doing okay. Unfortunately he is still smoking cigarettes. He is rounded cut down. A few months ago he developed a worsening cough chest congestion. He did follow-up with his primary care doctor he was prescribed prednisone and then a few courses of antibiotics. Now is back to his baseline. The patient was participating in the lung cancer screening program at [facility] in then he was supposed to follow-up here. He has not had a CT scan as of yet. I believe 1 time he had to reschedule. Will go ahead and we refer him to the lung cancer screening program in order for him to get his CT scan soon. He did have a history of pulmonary nodules that do need follow-up specially with his high risk of malignancy. His respiratory exam is okay although he still having some wheezing. He does not uses Symbicort regularly. I did recommend that he use a little more often. In addition to that if that is not better we can always consider adding Spiriva to his respiratory regimen. Will follow-up in 6-8 months. If the patient has any worsening symptoms he will call the office for an earlier assessment. 04/12/2024 the patient is here for a pulmonary follow-up visit. Overall he is feeling better finally. Over the summer he did develop pertussis and had a significant chronic cough for few months. But now is better. He continues on his respiratory inhalers with good effect. He does use Combivent and also Symbicort. In addition to that the patient did start some cough medication. He is participating in the lung cancer screening program. His last CT scan was back in 09/16/2023 demonstrating a small 5 mm pulmonary nodule which is stable compared to his previous reports and also moderate degree of emphysema. Therefore he knows that he needs to quit smoking. He has been struggling with that. Although now is going to be using nonsmoker herbal nicotine products to help him with that. Will follow-up with him in about 6-8 months. If any new issues arise he will call for further evaluation. 11/15/2024 the patient is here for pulmonary follow-up visit. Overall he is doing okay. He is working closely with thoracic surgery at [facility]. He did have a large in left upper lobe pulmonary nodule. He is scheduled for repeat CAT scan in the fall of 2024. It did nodules any bigger than her likely have the resected. He has had had some weight loss. Also decreased appetite. He is not sure if it is because he retired or if there is any health issues going on. He is still working on the smoking. Still smoking difficult to quit. He continues use his inhalers with good effect. Will follow up in 6 months. If he has any new issues or any concerning symptoms he can always call for an earlier assessment. For now will just have to wait to see what thoracic surgery thinks about his upcoming CT scan. [facility] Medical History (Updated 09/27/24 @ 08:31 by Julianna Oalkey PA-C) Pulmonary nodules COPD (chronic obstructive pulmonary disease) Nicotine dependence, cigarettes, uncomplicated Hypertension GERD (gastroesophageal reflux disease) Gout Surgical History (Updated 09/22/23 @ 09:35 by Julianna Oakley PA-C) History of tonsillectomy Social History Alcohol intake: current Alcohol intake frequency: 0-2 drinks per day Patient Tobacco Use Status: Current everyday Tobacco user Tobacco use type: Cigarette Cigarette Packs Per Day: 1 Years Smoked: (onset 17yo, 1ppd x 50yrs, 40+PYH) Review of Systems Const Denies chills, Denies fatigue and Reports weight loss Eyes Denies change in vision ENT Reports change in voice, Reports nasal congestion, Reports nasal discharge and Reports sore throat Card Denies chest pain and Reports dyspnea on exertion Resp Reports chest congestion, Reports cough, Reports dyspnea on exertion and Reports wheezing GI Reports no additional complaints Musc Reports no additional complaints Skin/Breast Denies rash Neuro Reports no additional complaints Endo Reports no additional complaints and Denies fatigue Marko/Lymph Denies easy bleeding, Denies easy bruising and Denies lymphadenopathy Aller/Immun Reports wheezing Physical Exam Vital Signs: Last Vital Signs Pulse 83 11/15/24 13:56 BP 130/74 11/15/24 13:56 Pulse Ox 92 11/15/24 13:56 Oxygen Delivery Method Room Air 11/15/24 13:56 BMI result Body Mass Index 20.6 Const General: alert HEENT Head: Yes normocephalic Neck Neck: Yes normal visual inspection and Yes full ROM Chest Chest palpation & inspection: normal inspection of the chest Resp Auscultation: no rhonchi, no wheezes and diminished lung sounds Cardio Rate: regular rate Rhythm: regular rhythm Heart sounds: S1 normal heart sound present and S2 normal heart sound present GI Inspection: Yes normal to inspection Skin General skin exam: no rashes or lesions noted Extrem General: Yes no clubbing, cyanosis or edema Assessment & Plan Assessment & Plan (1) COPD (chronic obstructive pulmonary disease): Code(s): J44.9 - Chronic obstructive pulmonary disease, unspecified Category: Medical Qualifiers: COPD type: chronic bronchitis Chronic bronchitis type: mixed simple and mucopurulent Qualified Code(s): J41.8 - Mixed simple and mucopurulent chronic bronchitis (2) Pulmonary nodules: Comment: 09/25/24 LDCT = Lung RADS 3. 5 x 5.3mm VALENTINE nodule - plan is referral to Thoracics) Code(s): R91.8 - Other nonspecific abnormal finding of lung field Category: Medical (3) Tobacco dependence: Code(s): F17.200 - Nicotine dependence, unspecified, uncomplicated Category: Medical Plan continue Symbicort Combivent MAGAN as needed Tobacco cessation: LDCT RADS 3, will follow up with Thoracic surgery. Trial Trazodone for sleep F/U 6-8 months Medications: New trazodone 50 mg PO BEDTIME PRN 30 tabs 6RF sleep Coding Level of Care Code Est Pt Level 4 (14115) Complex EM visit Add On G2211 Diagnoses Mixed simple and mucopurulent chronic bronchitis J41.8 COPD type: chronic bronchitis Chronic bronchitis type: mixed simple and mucopurulent Pulmonary nodules R91.8 Tobacco dependence F17.200 Time Spent (min) 17
--- OUTSIDE RECORDS SUMMARY | 2024-11-15 13:57 | XMS_ITS | Clinical Summary ---
Author Organization [facility] [address] [facility] Address [address] [place] [address] Phone Care Team Providers Care [employer] Name Role Phone Aubree John Primary Care Provider [phone] Allergies No known active allergies Medications metoprolol succinate (TOPROL-XL) 100 mg 24 hr tablet Take 1 tablet (100 mg total) by mouth 1 (one) time each day. 06/01/2024 Active lisinopriL (PRINIVIL,ZESTRI L) 30 mg tablet Take 1 tablet (30 mg total) by mouth 1 (one) time each day. 09/10/2024 Active allopurinoL (ZYLOPRIM) 100 mg tablet Take 1 tablet (100 mg total) by mouth 2 (two) times a day. 09/10/2024 Active Active Problems Problem Noted Date Diagnosed Date Pulmonary nodule 10/14/2024 Encounters Date Type Department Care Team Description 10/25/2024 12:07 PM EDT - 10/25/2024 11:59 PM EDT Hospital Encounter [facility] Pulmonary [address] [place] [address] Pulmonary nodule Discharge Disposition: Home or Self Care 10/14/2024 10:30 AM EDT Consult Thoracic Surgery - [place] [address] [address] Angella Mccarty MD Pulmonary nodule (Primary Dx) from Last 3 Months Social History Tobacco Use Types Packs/Day Years Used Date Smoking Tobacco: Never Assessed Sex and Gender Information Value Date Recorded Sex Assigned at Not on file Legal Sex Male 1:20 PM EDT Gender Identity Not on file Sexual Orientation Not on file Last Filed Vital Signs Vital Sign Reading Time Taken Comments Blood Pressure 160/103 10/14/2024 10:08 AM EDT Pulse 84 10/14/2024 10:08 AM EDT Temperature 37 C (98.6 F) 10/14/2024 10:08 AM EDT Respiratory Rate - - Oxygen Saturation 96% 10/14/2024 10: 08 AM EDT Inhaled Oxygen Concentration - - Weight 68.9 kg (151 lb 12.8 oz) 025 10:08 AM EDT Height 182.9 cm (6') 10/14/2024 10:08 AM EDT Body Mass Index 20.59 10/14/2024 10:08 AM EDT Plan of Treatment Upcoming Encounters Date Type Department Care Team (Late st Contact Info) Description 12/23/2024 3:30 PM EDT Appointment [facility] CT Scan [address] [place] [address] Health Maintenance Due Date Last Done Comments DTaP,Tdap,and Td Vaccines (1 - Tdap) 1973 Zoster Vaccines (1 of 2) 2004 RSV Immunization Adult Patie nts (1 - Risk 60-74 years 1-dose series) 2014 COVID-19 Vaccine (2023-2 5 season) 2024 Abdominal Aortic Aneurysm (A AA) Screen 10/03/2024 Cholesterol Screening (Lipid Panel) 10/03/2024 Colorectal Cancer Screening: Colonoscopy 10/03/2024 Depression Screening 10/03/2024 Falls Risk Assessment 10/03/2024 Hepatitis C Screening 10/03/2024 Lung Cancer Screening (Low D ose CT) 10/03/2024 Social Influencers of Health Screening 10/03/2024 Hypertension/CHF/CAD Annual BMP Blood Test 10/14/2024 Influenza Vaccine (Season Ended) 2025 04/05/20 22 Pneumococcal Vaccine: 50+ Years Completed 2 HIB Vaccines Aged Out No longer eligi ble based on patient's age to complete this topic HPV Vaccines Aged Out No longer eligi ble based on patient's age to complete this topic Hepatitis A Vaccines Aged Out No long er eligible based on patient's age to complete this topic Hepatitis B Vaccines Aged Out No long er eligible based on patient's age to complete this topic IPV Vaccines Aged Out No longer eligi ble based on patient's age to complete this topic MMR Vaccines Aged Out No longer eligi ble based on patient's age to complete this topic Meningococcal ACWY Vaccine Aged Out N o longer eligible based on patient's age to complete this topic Meningococcal B Vaccine Aged Out No l onger eligible based on patient's age to complete this topic RSV Immunization Patients Un tam 20 months Aged Out No longer eligible b ased on patient's age to complete this topic Varicella Vaccines Aged Out No longer eligible based on patient's age to complete this topic Procedures Procedure Name Priority Date/Time Associated Diagnosis Comments HC SPIROMETRY BRONCHODILATION RESPONSIVENESS PRE/POST BRONCHODILATOR ADMINISTRATION Routine 10/25/2024 1:18 PM EDT Pulmonary nodule from Last 3 Months Results * Pulmonary function testing: Carbon Monoxide Diffusing Capacity, Nitrogen Wash Out, Spirometry with Bronchodilator (10/25/2024 1:18 PM EDT) Narrative Rosa Berger MD - 10/25/2024 10:35 PM EDT Table formatting from the original result was not included. Images from the original result were not included. [facility] [address] [place] [id number] Pulmonary Functions Report Date of service: 10/25/24 Patient Name: Nirav Lyons Date of : 1955 Age: 68 y.o. Gender: male Procedure Order: Pulmonary function testing: Carbon Monoxide Diffusing Capacity, Nitrogen Wash Out, Spirometry with Bronchodilator Ordering Provider: Angella Mccarty MD Reason for Exam: Order Questions Answers Reason for Exam: preop Which PFTs would you like to perform? Carbon Monoxide Diffusing Capacity,Nitrogen Wash Out,Spirometry with Bronchodilator Diagnosis listed on Order: Pulmonary nodule Pulmonary Test Finding: Spirometry/ Flow Volume Loop: FEV1/FVC 42%. FEV1 is 1.51 at 46%, w/ z score -3.17. FVC is 82%. No bronchodilator response. Lung Volumes: TLC is 91%, w/ z score -0.70. RV is 125%. RV/TLC 139%. Diffusion Capacity: DLCO is 50%, (adjusted 52%). Shape of the flow-volume loop showed neither intrathoracic nor extrathoracic obstruction. Quality of Study: Meets ATS criteria for acceptability and repeatability Refer to scanned report for all additional results and graphs. Interpretation/Impression: Severe obstruction. No restriction. Moderate decrease in diffusion. Findings consistent with severe obstructive lung disease with emphysema. Angella Mccarty MD PFT ORDERABLES Final Result from Last 3 Months Insurance MEDICARE [facility] Care Teams [employer] Relationship Specialty Start Date End Date Aubree John PA [address] [facility] [address] [place] [address] PCP - General Physician Medical Data Analyst 10/02/24
== END 2024-11-15 14:13 | disposition home or self-care (01) ==
LOC: HO.HPS 13:55
PROVIDERS: PCP Physician Assistant Medical; Visit Provider Hospitalist
DX: J41.8 Mixed simple and mucopurulent chronic bronchitis (principal); R91.8 Other nonspecific abnormal finding of lung field; F17.200 Nicotine dependence, unspecified, uncomplicated
CPT/HCPCS: 99214